=== PATIENT | male | born 1985 | race Hispanic/Latino ===

== ENCOUNTER 2017-10-15 00:31 | Emergency (ER) | payer BC ==
[~2017-10-15] VITALS: Ht 177.8 cm; Wt 119.4 kg
[2017-10-15 01:22] LABS: HEMATOCRIT 46.3 % (38.0-50.0); HEMOGLOBIN 15.7 G/DL (12.5-16.6); MCH 25.7 PG (29.0-34.0); MCHC 33.9 G/DL (30.0-36.0); MCV 75.7 FL (86-99); PLATELET COUNT 242 K/uL (156-360); RBC DIS.WIDTH-CV 13.4 % (11.8-14.6); RED BLOOD COUNT 6.12 M/uL (4.00-5.50); WHITE BLOOD COUNT 10.3 K/uL (4.1-10.2)
[2017-10-15 01:25] LABS: APPEARANCE CLEAR ((CLEAR)); BILIRUBIN NEGATIVE; BLOOD SMALL; COLOR YELLOW ((YELLOW)); GLUCOSE (STRIP) NEGATIVE; KETONES NEGATIVE; LEUKOCYTES NEGATIVE; NITRITE NEGATIVE; PROTEIN (STRIP) 100; UROBILINOGEN 0.2 MG/DL (0.2-1.0)
[2017-10-15 01:29] LABS: BACTERIA NONE SEEN /HPF; EPITHELIAL CELLS NONE SEEN /HPF; MUCUS TRACE /LPF; WHITE BLOOD CELLS 0-5 /HPF (0-5)
[2017-10-15 01:31] LABS: ALBUMIN 4.4 g/dL (3.2-4.8); CHLORIDE 105 mEq/L (99-109); POTASSIUM 4.5 mEq/L (3.7-5.4); SODIUM 138 mEq/L (136-147)
[2017-10-15 01:34] LABS: GLUCOSE 154 mg/dL (70-99); TOTAL PROTEIN 7.6 g/dL (6.4-8.3)
[2017-10-15 01:36] LABS: TOTAL BILIRUBIN 0.4 mg/dL (0.0-1.0)
[2017-10-15 01:37] LABS: ALKALINE PHOSPHATASE 79 IU/L (3-129); GFR ESTIMATE (CALCULATED) > 59 mL/min/ (58.99-99999)
[2017-10-15 01:39] LABS: AST (GOT) 23 IU/L (2-34); DIRECT BILIRUBIN 0.1 mg/dL (0.0-0.3); UREA NITROGEN (BUN) 21 mg/dL (9-23)
[2017-10-15 01:40] LABS: ALT (GPT) 34 IU/L (3-49)
[2017-10-15 01:41] LABS: LIPASE 46 U/L (1.0-51.0)
[2017-10-15] MEDS ORDERED: NORCO 7.5/321 TABLET PO (01:56)
[2017-10-15] MEDS ORDERED: MOTRIN800 MG PO (01:56)
[2017-10-15] MEDS ORDERED: ZOFRAN ODT8 MG PO (01:56)
[2017-10-15] MEDS ORDERED: FLOMAX0.4 MG PO (01:56)
[2017-10-15 02:16] VITALS: BP 165/95
== END 2017-10-15 02:16 | disposition home or self-care (01) ==
LOC: EME 00:31 → EXP 00:31
PROVIDERS: Physician Assistant
DX: N13.2 Hydronephrosis with renal and ureteral calculous obstruction (principal); K76.0 Fatty (change of) liver, not elsewhere classified; R03.0 Elevated blood-pressure reading, without diagnosis of hypertension
CPT/HCPCS: 74176; 80048; 80076; 81003; 83690; 85027; 99281; 99284; J1885; J3010

== ENCOUNTER 2017-10-18 20:28 | Emergency (ER) | payer BC ==
[~2017-10-18] VITALS: Ht 177.8 cm; Wt 121.3 kg
[~2017-10-18 20:28] MED LIST: FLOMAX0.4 MG PO; MOTRIN800 MG PO; NORCO 7.5/321 TABLET PO; ZOFRAN ODT8 MG PO
[2017-10-18 21:23] LABS: APPEARANCE CLEAR ((CLEAR)); BILIRUBIN NEGATIVE; BLOOD NEGATIVE; COLOR YELLOW ((YELLOW)); GLUCOSE (STRIP) NEGATIVE; KETONES NEGATIVE; LEUKOCYTES NEGATIVE; NITRITE NEGATIVE; PROTEIN (STRIP) 30; SPECIFIC GRAVITY 1.018 (1.000-1.030); UCUL ADDED? NO; UROBILINOGEN 0.2 MG/DL (0.2-1.0)
[2017-10-18 21:31] LABS: MCH 25.8 PG (29.0-34.0); MCHC 34.3 G/DL (30.0-36.0); MCV 75.5 FL (86-99); PLATELET COUNT 197 K/uL (156-360); RBC DIS.WIDTH-CV 13.2 % (11.8-14.6); RBC DIS.WIDTH-SD 35.5 % (39-53); WHITE BLOOD COUNT 8.9 K/uL (4.1-10.2)
[2017-10-18 21:32] LABS: HEMOGLOBIN 13.7 G/DL (12.5-16.6)
[2017-10-18 21:35] LABS: CHLORIDE 105 mEq/L (99-109); POTASSIUM 4.8 mEq/L (3.7-5.4); SODIUM 138 mEq/L (136-147)
[2017-10-18 21:38] LABS: GLUCOSE 118 mg/dL (70-99)
[2017-10-18 21:39] LABS: TOTAL BILIRUBIN 0.3 mg/dL (0.0-1.0)
[2017-10-18 21:41] LABS: ALKALINE PHOSPHATASE 65 IU/L (3-129); GFR ESTIMATE (CALCULATED) 57 mL/min/ (58.99-99999)
[2017-10-18 21:42] LABS: UREA NITROGEN (BUN) 18 mg/dL (9-23)
[2017-10-18 21:43] LABS: AST (GOT) 18 IU/L (2-34)
[2017-10-18 21:44] LABS: ALT (GPT) 19 IU/L (3-49)
[2017-10-18 21:45] LABS: LIPASE 55 U/L (1.0-51.0)
[2017-10-18 21:47] LABS: CREATININE 1.5 mg/dL (0.6-1.3)
[2017-10-18] MEDS ORDERED: PERCOCET 5/31 TABLET PO (23:02)
[2017-10-18 23:17] VITALS: BP 146/88
== END 2017-10-18 23:28 | disposition home or self-care (01) ==
LOC: EME 20:28
PROVIDERS: Physician Assistant
DX: N20.0 Calculus of kidney (principal); Z87.442 Personal history of urinary calculi
CPT/HCPCS: 74176; 80053; 81003; 83690; 85027; 99281; 99284; J3010; J7030